=== PATIENT | female | born 1945 | race Caucasian/White ===

== ENCOUNTER → 2022-03-08 | Day surgery (SDC) | payer MEDICARE, OTHER ==
[~2022-03-08] MED LIST: Iron, Sodium Ferric Gluconate 125 MG in Sodium Chloride 0.9% 100 ML IVPB SCH; Sodium Chloride 0.9% 100 ML ONE
== END | disposition home or self-care (01) ==
LOC: NAV ER/OP 08:55
PROVIDERS: ATTEND Emergency Medicine
DX: D64.9 Anemia, unspecified (principal); E61.1 Iron deficiency; Z88.8 Allergy status to other drugs, medicaments and biological substances
CPT/HCPCS: J2916; J3490

== ENCOUNTER 2022-03-14 09:31 | Outpatient (CLI) | payer MEDICARE, OTHER ==
[2022-03-14 11:18] LABS: Follow-up Chemistry Comp? YES; Follow-up Result - Chemistry REPORT FAXED
== END 2022-03-14 09:32 | disposition home or self-care (01) ==
LOC: NAV LABSP 09:31
PROVIDERS: ATTEND Family Medicine
DX: E61.1 Iron deficiency (principal)
CPT/HCPCS: 83540

== ENCOUNTER → 2022-03-15 | Day surgery (SDC) | payer MEDICARE, OTHER ==
[~2022-03-15] MED LIST changes: +ADMIXTURE FEE IVPB SCH; +IRON IVPB SCH; +SODIUM FERRIC GLUCONATE IVPB SCH
== END | disposition home or self-care (01) ==
LOC: NAV ER/OP 08:54
PROVIDERS: ATTEND Emergency Medicine
DX: D64.9 Anemia, unspecified (principal); E61.1 Iron deficiency; Z88.8 Allergy status to other drugs, medicaments and biological substances
CPT/HCPCS: J2916; J3490

== ENCOUNTER 2022-03-22 09:13 | Emergency (ER) | payer MEDICARE, OTHER ==
[2022-03-22] MEDS ORDERED: Sulfameth/Trimethoprim DS 800-160mg TAB ONE (10:43)
== END 2022-03-22 10:35 | disposition home or self-care (01) ==
LOC: NAV ERS 09:13
DX: L03.115 Cellulitis of right lower limb (principal); E03.9 Hypothyroidism, unspecified; E78.5 Hyperlipidemia, unspecified; I10 Essential (primary) hypertension; E11.9 Type 2 diabetes mellitus without complications

== ENCOUNTER → 2022-03-22 | Day surgery (SDC) | payer MEDICARE, OTHER ==
[~2022-03-22] MED LIST changes: -ADMIXTURE FEE IVPB SCH; -IRON IVPB SCH; -SODIUM FERRIC GLUCONATE IVPB SCH
== END | disposition home or self-care (01) ==
LOC: NAV ER/OP 08:41
PROVIDERS: ATTEND Family Medicine
DX: D64.9 Anemia, unspecified (principal); E61.1 Iron deficiency; Z88.8 Allergy status to other drugs, medicaments and biological substances
CPT/HCPCS: 96365; 99283; J2916; J3490

== ENCOUNTER 2022-05-02 10:48 | Outpatient (CLI) | payer MEDICARE, OTHER ==
[2022-05-02 11:22] LABS: ALT (SGPT) 21 U/L (8-55); AST (SGOT) 19 U/L (5-34); Albumin 3.2 g/dL (3.4-4.8); Alkaline Phosphatase 107 U/L (40-110); Anion Gap 24 mmol/L (10-20); BUN (Urea Nitrogen) 28 mg/dL (9.8-20.1); Bilirubin, Total 0.9 mg/dL (0.2-1.2); Calc. Creatinine Clearance 0 mL/min (70-130); Calcium 8.7 mg/dL (7.8-10.44); Carbon Dioxide 23 mmol/L (23-31); Chloride 97 mmol/L (98-107); Estimated GFR 43; Globulin 3.2 g/dL (2.4-3.5); Potassium 4.7 mmol/L (3.5-5.1); Protein, Total 6.4 g/dL (5.8-8.1); Sodium 139 mmol/L (136-145)
[2022-05-02 11:27] LABS: Hemoglobin 7.6 g/dL (12.0-16.0); Manual Diff?? NO; Mean Corpuscular HGB CONC 28.7 g/dL (32.0-36.0); Mean Corpuscular Volume 83.8 fL (78.0-98.0); Mean Platelet Volume 8.4 fL (7.4-10.4); Platelet Count 420 thou/uL (130-400); RBC Distribution Width 17.1 % (11.5-14.5); Red Blood Cell (RBC) Count 3.17 mill/uL (4.20-5.40); White Blood Cell (WBC) Count 11.2 thou/uL (4.8-10.8)
[2022-05-02 11:28] LABS: #Basophils 0.1 thou/uL (0.0-0.2); #Eosinphils 0.2 thou/uL (0.0-0.7); #Lymphocytes 1.6 thou/uL (1.20-3.40); #Monocytes 1.3 thou/uL (0.11-0.59); #Neutrophils 8.1 thou/uL (1.40-6.50); %Basophils 0.7 % (0.0-1.0); %Eosinophils 2.1 % (0.0-10.0); %Lymphocytes 14.3 % (21.0-51.0); %Monocytes 11.3 % (0.0-10.0); %Neutrophils 71.7 % (42.0-75.0)
[2022-05-02 12:42] LABS: Glucose 59 mg/dL (83-110)
[2022-05-02 12:50] LABS: Bilirubin Negative (Negative); Blood, Urine Trace (Negative); Glucose, Urine (Dipstick) Negative (Negative); Ketone, Urine Negative (Negative); Leukocyte Large (Negative); Nitrite Negative (Negative); Protein, Urine (Dipstick) 30 mg/dL (Neg-Trace)
[2022-05-02 12:51] LABS: Bacteria/HPF 4+ HPF (None Seen); Clarity Cloudy (Clear); RBC/HPF 0-3 HPF (0-3); Squamous Epithelial 0-3 HPF (0-3); Transitional Epithelial 0-3 HPF (None Seen); WBC/HPF Greater Than 50 HPF (0-3)
[2022-05-02 17:22] LABS: Iron 23 ug/dL (50-170); Iron Binding Capacity, Total 214 mcg/dL (265-497); Transferrin, Serum 171 mg/dL (173-360); Triglycerides 73 mg/dL (Less than 150)
== END 2022-05-02 10:49 | disposition home or self-care (01) ==
LOC: NAV LABSP 10:48
PROVIDERS: ATTEND Family Medicine
DX: I82.413 Acute embolism and thrombosis of femoral vein, bilateral (principal); N17.9 Acute kidney failure, unspecified; D64.9 Anemia, unspecified; R74.01 Elevation of levels of liver transaminase levels
CPT/HCPCS: 80053; 81003; 81015; 82728; 83540; 83550; 84466; 84478; 85025

== ENCOUNTER 2022-06-07 15:33 | Inpatient (IN) | payer MEDICARE, OTHER ==
[2022-06-07] MEDS ORDERED: Ondansetron ODT 4 MG TAB PO PRN (18:54)
[2022-06-07] MEDS ORDERED: Cepastat Lozenges 1 LOZ PO PRN (18:54)
[2022-06-07] MEDS ORDERED: Artificial Tear Sol 15 ML BOT EA EYE PRN (18:54)
[2022-06-07] MEDS ORDERED: Acetaminophen 325 MG TAB PO PRN ×2 (18:54→20:19)
[2022-06-07] MEDS ORDERED: Acetaminophen 650 MG Suppository PR PRN (18:54)
[2022-06-07] MEDS ORDERED: Ondansetron PF 4 MG/2 ML Vial IVP PRN (18:54)
[2022-06-07] MEDS ORDERED: Sodium Chloride 0.65% Nasal 44 ML BOT EA NARE PRN (18:54)
[2022-06-07] MEDS ORDERED: Calcium Carbonate 500 MG ChewTAB PO PRN (18:54)
[2022-06-07] MEDS ORDERED: Dextrose 50% Abboject 50 ML SYRINGE SLOW IVP PRN (20:16)
[2022-06-07] MEDS ORDERED: HumaLOG 300 UNITS/3 ML VIAL SC PRN (20:30)
[2022-06-07] MEDS ORDERED: Dextrose 5% in Water 1,000 ML IV PRN (20:30)
[2022-06-07] MEDS: hydrALAZINE 25 MG TAB PO SCH (21:35)
[2022-06-07] MEDS: Atorvastatin Calcium 40 MG TAB PO SCH (21:35)
[2022-06-07] MEDS: Apixaban 5 MG TAB PO SCH (21:35)
[2022-06-07] MEDS: Senokot S 8.6-50 MG TAB PO SCH (21:36)
[2022-06-07] MEDS: Gabapentin 100 MG CAP PO SCH (21:36)
[2022-06-07] MEDS: Metoprolol Tartrate 25 MG TAB PO SCH (21:36)
[2022-06-07] MEDS: Famotidine 20 MG TAB PO SCH (21:38)
[2022-06-07] MEDS: BENGAY TOP SCH (21:49)
[2022-06-08] MEDS: traMADol HCl 50 MG TAB PO SCH ×4 (01:02→17:14)
[2022-06-08] MEDS: Levothyroxine 150 MCG TAB PO SCH (05:31)
[2022-06-08] MEDS: FLUoxetine HCl 20 MG CAP PO SCH (07:47)
[2022-06-08] MEDS: Famotidine 20 MG TAB PO SCH ×2 (07:55→20:33)
[2022-06-08] MEDS: Calcium Carbonate 600 MG + Vit D TAB PO SCH (07:57)
[2022-06-08] MEDS: Furosemide 40 MG TAB PO SCH (07:57)
[2022-06-08] MEDS: hydrALAZINE 25 MG TAB PO SCH ×2 (07:58→20:33)
[2022-06-08] MEDS: Polyethylene Glycol 3350 17 GM Packet PO SCH (07:58)
[2022-06-08] MEDS: Senokot S 8.6-50 MG TAB PO SCH ×2 (07:58→20:34)
[2022-06-08] MEDS: Metoprolol Tartrate 25 MG TAB PO SCH ×2 (07:58→20:33)
[2022-06-08] MEDS: Apixaban 5 MG TAB PO SCH (07:58)
[2022-06-08] MEDS: BENGAY TOP SCH ×3 (07:59→20:35)
[2022-06-08] MEDS: Gabapentin 100 MG CAP PO SCH ×3 (07:59→20:33)
[2022-06-08] MEDS: Liothyronine Sodium 5 MCG TAB PO SCH (07:59)
[2022-06-08 08:09] LABS: #Basophils 0.1 thou/uL (0.0-0.2); #Eosinphils 0.3 thou/uL (0.0-0.7); #Lymphocytes 2.1 thou/uL (1.20-3.40); #Neutrophils 6.4 thou/uL (1.40-6.50); %Basophils 0.7 % (0.0-1.0); %Eosinophils 3.5 % (0.0-10.0); %Lymphocytes 21.4 % (21.0-51.0); %Monocytes 9.8 % (0.0-10.0); %Neutrophils 64.6 % (42.0-75.0); Hemoglobin 6.8 g/dL (12.0-16.0); Mean Corpuscular HGB CONC 28.4 g/dL (32.0-36.0); Mean Corpuscular Hemoglobin 23.1 pg (27.0-31.0); Mean Corpuscular Volume 81.3 fL (78.0-98.0); Mean Platelet Volume 7.8 fL (7.4-10.4); Platelet Count 451 thou/uL (130-400); RBC Distribution Width 16.2 % (11.5-14.5); Red Blood Cell (RBC) Count 2.94 mill/uL (4.20-5.40); White Blood Cell (WBC) Count 9.8 thou/uL (4.8-10.8)
[2022-06-08 08:19] LABS: ALT (SGPT) 34 U/L (8-55); AST (SGOT) 22 U/L (5-34); Albumin 2.7 g/dL (3.4-4.8); Alkaline Phosphatase 137 U/L (40-110); Anion Gap 14 mmol/L (10-20); BUN (Urea Nitrogen) 22 mg/dL (9.8-20.1); Bilirubin, Total 0.3 mg/dL (0.2-1.2); Calc. Creatinine Clearance 96 mL/min (70-130); Carbon Dioxide 34 mmol/L (23-31); Chloride 96 mmol/L (98-107); Estimated GFR 54; Globulin 3.2 g/dL (2.4-3.5); Glucose 113 mg/dL (83-110); Potassium 4.2 mmol/L (3.5-5.1); Protein, Total 5.9 g/dL (5.8-8.1); Sodium 140 mmol/L (136-145)
[2022-06-08] MEDS: HumaLOG 300 UNITS/3 ML VIAL SC PRN ×2 (11:40→17:17)
[2022-06-08] MEDS ORDERED: Bisacodyl 5 MG TAB PO PRN (19:14)
[2022-06-08] MEDS ORDERED: Bisacodyl 10 MG SUPP PR PRN (19:14)
[2022-06-08] MEDS ORDERED: Milk Of Magnesia 30 ML UDCUP PO PRN (19:14)
[2022-06-08] MEDS: Atorvastatin Calcium 40 MG TAB PO SCH (20:33)
[2022-06-08] MEDS: Apixaban 2.5 MG TAB PO SCH (20:34)
[2022-06-09] MEDS: traMADol HCl 50 MG TAB PO SCH ×2 (00:05→05:54)
[2022-06-09] MEDS: Levothyroxine 150 MCG TAB PO SCH (05:54)
[2022-06-09] MEDS: FLUoxetine HCl 20 MG CAP PO SCH (08:07)
[2022-06-09] MEDS: Gabapentin 100 MG CAP PO SCH ×3 (08:08→20:20)
[2022-06-09] MEDS: Apixaban 2.5 MG TAB PO SCH ×2 (08:08→20:19)
[2022-06-09] MEDS: Famotidine 20 MG TAB PO SCH ×2 (08:09→20:19)
[2022-06-09] MEDS: Metoprolol Tartrate 25 MG TAB PO SCH ×2 (08:09→19:40)
[2022-06-09] MEDS: hydrALAZINE 25 MG TAB PO SCH ×2 (08:09→19:40)
[2022-06-09] MEDS: Liothyronine Sodium 5 MCG TAB PO SCH (08:09)
[2022-06-09] MEDS: Furosemide 40 MG TAB PO SCH (08:09)
[2022-06-09] MEDS: Polyethylene Glycol 3350 17 GM Packet PO SCH (08:09)
[2022-06-09] MEDS: Senokot S 8.6-50 MG TAB PO SCH ×2 (08:09→20:20)
[2022-06-09] MEDS: Calcium Carbonate 600 MG + Vit D TAB PO SCH (08:09)
[2022-06-09] MEDS: BENGAY TOP SCH ×3 (08:10→20:20)
[2022-06-09] MEDS ORDERED: EPINEPHrine 1 MG/ML AMP IVP PRN (10:32)
[2022-06-09] MEDS ORDERED: Acetaminophen 650 MG Suppository PR PRN (10:37)
[2022-06-09] MEDS: HumaLOG 300 UNITS/3 ML VIAL SC PRN (12:19)
[2022-06-09 16:15] LABS: Bilirubin Negative (Negative); Blood, Urine Negative (Negative); Clarity Clear (Clear); Glucose, Urine (Dipstick) Negative (Negative); Ketone, Urine Negative (Negative); Leukocyte Negative (Negative); Nitrite Negative (Negative); Protein, Urine (Dipstick) 30 mg/dL (Neg-Trace); Specific Gravity, Urine 1.015 (1.005-1.030); Urobilinogen 0.2 mg/dL (Less than 2); pH, Urine 5.5 (5.0-9.0)
[2022-06-09 17:44] LABS: Hemoglobin 6.9 g/dL (12.0-16.0)
[2022-06-09 17:48] LABS: Urine Culture Reflex No No
[2022-06-09 17:53] LABS: Squamous Epithelial 0-3 HPF (0-3); WBC/HPF 0-3 HPF (0-3)
[2022-06-09] MEDS: Atorvastatin Calcium 40 MG TAB PO SCH (20:19)
[2022-06-10] MEDS: Levothyroxine 150 MCG TAB PO SCH (05:36)
[2022-06-10 07:03] LABS: Hemoglobin 7.5 g/dL (12.0-16.0); MDiff Complete? YES; Mean Corpuscular HGB CONC 27.7 g/dL (32.0-36.0); Mean Corpuscular Hemoglobin 22.4 pg (27.0-31.0); Mean Corpuscular Volume 80.6 fL (78.0-98.0); Mean Platelet Volume 8.2 fL (7.4-10.4); Platelet Count 388 thou/uL (130-400); RBC Distribution Width 16.6 % (11.5-14.5); Red Blood Cell (RBC) Count 3.35 mill/uL (4.20-5.40)
[2022-06-10 07:05] LABS: Anisocytosis SLIGHT = 6-15 cells (100X) (0-5/hpf); Band 4 % (5-11); Hypochromia SLIGHT = 6-15 cells (100X) (0-5/hpf); Lymphocytes 19 % (21-51); Monocytes 1 % (0-10); Neutrophil 76 % (42-75)
[2022-06-10] MEDS: Metoprolol Tartrate 25 MG TAB PO SCH ×2 (07:59→21:20)
[2022-06-10] MEDS: Liothyronine Sodium 5 MCG TAB PO SCH (08:00)
[2022-06-10] MEDS: Senokot S 8.6-50 MG TAB PO SCH ×2 (08:00→21:20)
[2022-06-10] MEDS: Calcium Carbonate 600 MG + Vit D TAB PO SCH (08:00)
[2022-06-10] MEDS: Furosemide 40 MG TAB PO SCH (08:00)
[2022-06-10] MEDS: Apixaban 2.5 MG TAB PO SCH ×2 (08:00→21:20)
[2022-06-10] MEDS: Gabapentin 100 MG CAP PO SCH ×3 (08:02→21:18)
[2022-06-10] MEDS: FLUoxetine HCl 20 MG CAP PO SCH (08:03)
[2022-06-10] MEDS: Famotidine 20 MG TAB PO SCH (08:04)
[2022-06-10] MEDS: BENGAY TOP SCH ×3 (08:04→21:24)
[2022-06-10] MEDS: Polyethylene Glycol 3350 17 GM Packet PO SCH (08:04)
[2022-06-10] MEDS: hydrALAZINE 25 MG TAB PO SCH ×2 (08:04→21:20)
[2022-06-10] MEDS: traMADol HCl 50 MG TAB PO PRN ×2 (08:11→21:21)
[2022-06-10] MEDS ORDERED: Famotidine 20 MG TAB PO PRN (11:43)
[2022-06-10] MEDS: HumaLOG 300 UNITS/3 ML VIAL SC PRN (11:45)
[2022-06-10 16:10] LABS: #Eosinphils 0.2 thou/uL (0.0-0.7); #Lymphocytes 1.4 thou/uL (1.20-3.40); #Monocytes 1.1 thou/uL (0.11-0.59); #Neutrophils 11.2 thou/uL (1.40-6.50); %Basophils 0.2 % (0.0-1.0); %Eosinophils 1.5 % (0.0-10.0); %Lymphocytes 10.2 % (21.0-51.0); %Monocytes 7.6 % (0.0-10.0); %Neutrophils 80.5 % (42.0-75.0); Hemoglobin 8.2 g/dL (12.0-16.0); Mean Corpuscular HGB CONC 29.4 g/dL (32.0-36.0); Mean Corpuscular Volume 81.6 fL (78.0-98.0); Mean Platelet Volume 8.1 fL (7.4-10.4); Platelet Count 370 thou/uL (130-400); RBC Distribution Width 16.9 % (11.5-14.5); Red Blood Cell (RBC) Count 3.41 mill/uL (4.20-5.40); White Blood Cell (WBC) Count 13.9 thou/uL (4.8-10.8)
[2022-06-10] MEDS: Atorvastatin Calcium 40 MG TAB PO SCH (21:20)
[2022-06-11] MEDS: Levothyroxine 150 MCG TAB PO SCH (05:15)
[2022-06-11 06:09] LABS: #Basophils 0.1 thou/uL (0.0-0.2); #Eosinphils 0.3 thou/uL (0.0-0.7); #Lymphocytes 1.3 thou/uL (1.20-3.40); #Monocytes 1.1 thou/uL (0.11-0.59); %Basophils 0.4 % (0.0-1.0); %Eosinophils 2.1 % (0.0-10.0); %Lymphocytes 10.4 % (21.0-51.0); %Monocytes 8.2 % (0.0-10.0); %Neutrophils 78.9 % (42.0-75.0); Hemoglobin 8.4 g/dL (12.0-16.0); Mean Corpuscular HGB CONC 29.1 g/dL (32.0-36.0); Mean Corpuscular Hemoglobin 23.7 pg (27.0-31.0); Mean Corpuscular Volume 81.6 fL (78.0-98.0); Mean Platelet Volume 8.3 fL (7.4-10.4); Platelet Count 438 thou/uL (130-400); RBC Distribution Width 16.7 % (11.5-14.5); Red Blood Cell (RBC) Count 3.55 mill/uL (4.20-5.40); White Blood Cell (WBC) Count 12.7 thou/uL (4.8-10.8)
[2022-06-11 06:18] LABS: Anion Gap 16 mmol/L (10-20); BUN (Urea Nitrogen) 27 mg/dL (9.8-20.1); Calc. Creatinine Clearance 99 mL/min (70-130); Calcium 9.3 mg/dL (7.8-10.44); Carbon Dioxide 31 mmol/L (23-31); Chloride 93 mmol/L (98-107); Estimated GFR 56; Glucose 145 mg/dL (83-110); Potassium 4.6 mmol/L (3.5-5.1); Sodium 135 mmol/L (136-145)
[2022-06-11] MEDS: traMADol HCl 50 MG TAB PO PRN ×2 (09:20→20:40)
[2022-06-11] MEDS: BENGAY TOP SCH ×3 (09:22→20:42)
[2022-06-11] MEDS: Polyethylene Glycol 3350 17 GM Packet PO SCH (09:22)
[2022-06-11] MEDS: Calcium Carbonate 600 MG + Vit D TAB PO SCH (09:22)
[2022-06-11] MEDS: FLUoxetine HCl 20 MG CAP PO SCH (09:22)
[2022-06-11] MEDS: Senokot S 8.6-50 MG TAB PO SCH ×2 (09:23→20:41)
[2022-06-11] MEDS: Furosemide 40 MG TAB PO SCH (09:23)
[2022-06-11] MEDS: Gabapentin 100 MG CAP PO SCH ×3 (09:23→20:41)
[2022-06-11] MEDS: Metoprolol Tartrate 25 MG TAB PO SCH ×2 (09:23→20:41)
[2022-06-11] MEDS: hydrALAZINE 25 MG TAB PO SCH ×3 (09:23→20:41)
[2022-06-11] MEDS: Liothyronine Sodium 5 MCG TAB PO SCH (09:24)
[2022-06-11] MEDS: Apixaban 2.5 MG TAB PO SCH ×2 (09:24→20:41)
[2022-06-11] MEDS: HumaLOG 300 UNITS/3 ML VIAL SC PRN (11:52)
[2022-06-11] MEDS ORDERED: Lisinopril 10 MG TAB PO SCH (17:45)
[2022-06-11] MEDS: Atorvastatin Calcium 40 MG TAB PO SCH (20:41)
[2022-06-12] MEDS: Levothyroxine 150 MCG TAB PO SCH (05:59)
[2022-06-12 06:18] LABS: #Basophils 0.1 thou/uL (0.0-0.2); #Eosinphils 0.3 thou/uL (0.0-0.7); #Lymphocytes 1.7 thou/uL (1.20-3.40); #Monocytes 0.8 thou/uL (0.11-0.59); #Neutrophils 7.3 thou/uL (1.40-6.50); %Basophils 0.7 % (0.0-1.0); %Eosinophils 2.8 % (0.0-10.0); %Lymphocytes 16.5 % (21.0-51.0); Hemoglobin 8.4 g/dL (12.0-16.0); Mean Corpuscular HGB CONC 28.8 g/dL (32.0-36.0); Mean Corpuscular Hemoglobin 23.6 pg (27.0-31.0); Mean Corpuscular Volume 81.7 fL (78.0-98.0); Mean Platelet Volume 7.5 fL (7.4-10.4); Platelet Count 202 thou/uL (130-400); RBC Distribution Width 17.1 % (11.5-14.5); Red Blood Cell (RBC) Count 3.57 mill/uL (4.20-5.40); White Blood Cell (WBC) Count 10.2 thou/uL (4.8-10.8)
[2022-06-12 06:20] LABS: Anion Gap 16 mmol/L (10-20); BUN (Urea Nitrogen) 25 mg/dL (9.8-20.1); Calc. Creatinine Clearance 106 mL/min (70-130); Calcium 8.8 mg/dL (7.8-10.44); Carbon Dioxide 29 mmol/L (23-31); Chloride 97 mmol/L (98-107); Estimated GFR 60; Glucose 130 mg/dL (83-110); Potassium 4.9 mmol/L (3.5-5.1); Sodium 137 mmol/L (136-145)
[2022-06-12] MEDS: Calcium Carbonate 600 MG + Vit D TAB PO SCH (09:21)
[2022-06-12] MEDS: Gabapentin 100 MG CAP PO SCH ×3 (09:22→21:28)
[2022-06-12] MEDS: FLUoxetine HCl 20 MG CAP PO SCH (09:22)
[2022-06-12] MEDS: Metoprolol Tartrate 25 MG TAB PO SCH ×2 (09:24→21:28)
[2022-06-12] MEDS: Furosemide 40 MG TAB PO SCH (09:25)
[2022-06-12] MEDS: Liothyronine Sodium 5 MCG TAB PO SCH (09:25)
[2022-06-12] MEDS: Lisinopril 10 MG TAB PO SCH (09:25)
[2022-06-12] MEDS: Apixaban 2.5 MG TAB PO SCH ×2 (09:25→21:28)
[2022-06-12] MEDS: hydrALAZINE 25 MG TAB PO SCH ×3 (09:25→21:28)
[2022-06-12] MEDS: Polyethylene Glycol 3350 17 GM Packet PO SCH (09:26)
[2022-06-12] MEDS: Senokot S 8.6-50 MG TAB PO SCH ×2 (09:27→21:28)
[2022-06-12] MEDS: BENGAY TOP SCH ×3 (09:29→21:33)
[2022-06-12] MEDS: traMADol HCl 50 MG TAB PO PRN ×2 (12:29→21:29)
[2022-06-12] MEDS: HumaLOG 300 UNITS/3 ML VIAL SC PRN (16:51)
[2022-06-12] MEDS: Atorvastatin Calcium 40 MG TAB PO SCH (21:29)
[2022-06-13] MEDS: Levothyroxine 150 MCG TAB PO SCH (05:52)
[2022-06-13 06:08] LABS: #Basophils 0.1 thou/uL (0.0-0.2); #Eosinphils 0.3 thou/uL (0.0-0.7); #Lymphocytes 1.7 thou/uL (1.20-3.40); #Monocytes 1.2 thou/uL (0.11-0.59); %Basophils 0.6 % (0.0-1.0); %Lymphocytes 16.5 % (21.0-51.0); %Monocytes 11.4 % (0.0-10.0); %Neutrophils 68.5 % (42.0-75.0); Hemoglobin 7.8 g/dL (12.0-16.0); Mean Corpuscular HGB CONC 30.3 g/dL (32.0-36.0); Mean Corpuscular Hemoglobin 24.4 pg (27.0-31.0); Mean Corpuscular Volume 80.4 fL (78.0-98.0); Mean Platelet Volume 7.9 fL (7.4-10.4); Platelet Count 365 thou/uL (130-400); RBC Distribution Width 16.9 % (11.5-14.5); Red Blood Cell (RBC) Count 3.19 mill/uL (4.20-5.40); White Blood Cell (WBC) Count 10.2 thou/uL (4.8-10.8)
[2022-06-13 06:09] LABS: Anion Gap 13 mmol/L (10-20); BUN (Urea Nitrogen) 24 mg/dL (9.8-20.1); Calc. Creatinine Clearance 111 mL/min (70-130); Calcium 8.8 mg/dL (7.8-10.44); Carbon Dioxide 33 mmol/L (23-31); Chloride 94 mmol/L (98-107); Estimated GFR 63; Glucose 135 mg/dL (83-110); Potassium 4.5 mmol/L (3.5-5.1); Sodium 135 mmol/L (136-145)
[2022-06-13] MEDS: Polyethylene Glycol 3350 17 GM Packet PO SCH (07:53)
[2022-06-13] MEDS: Furosemide 40 MG TAB PO SCH (07:54)
[2022-06-13] MEDS: BENGAY TOP SCH ×3 (07:54→21:09)
[2022-06-13] MEDS: Calcium Carbonate 600 MG + Vit D TAB PO SCH (07:54)
[2022-06-13] MEDS: Lisinopril 10 MG TAB PO SCH (07:54)
[2022-06-13] MEDS: Senokot S 8.6-50 MG TAB PO SCH ×2 (07:54→21:07)
[2022-06-13] MEDS: Liothyronine Sodium 5 MCG TAB PO SCH (07:54)
[2022-06-13] MEDS: Apixaban 2.5 MG TAB PO SCH ×2 (07:54→21:07)
[2022-06-13] MEDS: FLUoxetine HCl 20 MG CAP PO SCH (07:55)
[2022-06-13] MEDS: Metoprolol Tartrate 25 MG TAB PO SCH ×2 (07:55→21:07)
[2022-06-13] MEDS: Gabapentin 100 MG CAP PO SCH ×3 (07:55→21:05)
[2022-06-13] MEDS: hydrALAZINE 25 MG TAB PO SCH ×3 (07:55→21:07)
[2022-06-13] MEDS: traMADol HCl 50 MG TAB PO PRN ×2 (11:08→22:52)
[2022-06-13] MEDS: HumaLOG 300 UNITS/3 ML VIAL SC PRN (11:47)
[2022-06-13] MEDS: Acetaminophen 325 MG TAB PO PRN (15:44)
[2022-06-13] MEDS: Atorvastatin Calcium 40 MG TAB PO SCH (21:07)
[2022-06-14] MEDS: Levothyroxine 150 MCG TAB PO SCH (05:40)
[2022-06-14] MEDS: BENGAY TOP SCH ×3 (07:56→20:48)
[2022-06-14] MEDS: Calcium Carbonate 600 MG + Vit D TAB PO SCH (07:56)
[2022-06-14] MEDS: FLUoxetine HCl 20 MG CAP PO SCH (07:58)
[2022-06-14] MEDS: Liothyronine Sodium 5 MCG TAB PO SCH (07:59)
[2022-06-14] MEDS: Lisinopril 10 MG TAB PO SCH (07:59)
[2022-06-14] MEDS: Senokot S 8.6-50 MG TAB PO SCH ×2 (07:59→20:47)
[2022-06-14] MEDS: hydrALAZINE 25 MG TAB PO SCH ×3 (07:59→20:47)
[2022-06-14] MEDS: Metoprolol Tartrate 25 MG TAB PO SCH ×2 (07:59→20:47)
[2022-06-14] MEDS: Furosemide 40 MG TAB PO SCH (07:59)
[2022-06-14] MEDS: Gabapentin 100 MG CAP PO SCH ×3 (07:59→20:47)
[2022-06-14] MEDS: Apixaban 2.5 MG TAB PO SCH ×2 (07:59→20:47)
[2022-06-14] MEDS: Polyethylene Glycol 3350 17 GM Packet PO SCH (08:00)
[2022-06-14] MEDS: HumaLOG 300 UNITS/3 ML VIAL SC PRN (12:09)
[2022-06-14] MEDS: Atorvastatin Calcium 40 MG TAB PO SCH (20:47)
[2022-06-15] MEDS: Levothyroxine 150 MCG TAB PO SCH (06:14)
[2022-06-15] MEDS: BENGAY TOP SCH ×3 (07:52→20:52)
[2022-06-15] MEDS: Calcium Carbonate 600 MG + Vit D TAB PO SCH (07:53)
[2022-06-15] MEDS: traMADol HCl 50 MG TAB PO PRN ×2 (07:54→15:17)
[2022-06-15] MEDS: Senokot S 8.6-50 MG TAB PO SCH ×2 (07:56→20:51)
[2022-06-15] MEDS: hydrALAZINE 25 MG TAB PO SCH ×3 (07:56→20:51)
[2022-06-15] MEDS: Liothyronine Sodium 5 MCG TAB PO SCH (07:56)
[2022-06-15] MEDS: Metoprolol Tartrate 25 MG TAB PO SCH ×2 (07:56→20:52)
[2022-06-15] MEDS: FLUoxetine HCl 20 MG CAP PO SCH (07:56)
[2022-06-15] MEDS: Gabapentin 100 MG CAP PO SCH ×3 (07:56→20:51)
[2022-06-15] MEDS: Polyethylene Glycol 3350 17 GM Packet PO SCH (07:57)
[2022-06-15] MEDS: Furosemide 40 MG TAB PO SCH (07:57)
[2022-06-15] MEDS: Apixaban 2.5 MG TAB PO SCH ×2 (07:57→20:52)
[2022-06-15] MEDS: Lisinopril 10 MG TAB PO SCH (07:57)
[2022-06-15] MEDS: Cyclobenzaprine 10 MG TAB PO PRN ×2 (09:35→20:54)
[2022-06-15] MEDS: Acetaminophen 325 MG TAB PO PRN ×2 (11:59→20:54)
[2022-06-15] MEDS: HumaLOG 300 UNITS/3 ML VIAL SC PRN ×2 (12:00→17:16)
[2022-06-15] MEDS: Atorvastatin Calcium 40 MG TAB PO SCH (20:51)
[2022-06-16] MEDS: Levothyroxine 150 MCG TAB PO SCH (05:24)
[2022-06-16] MEDS: Metoprolol Tartrate 25 MG TAB PO SCH ×2 (08:53→20:56)
[2022-06-16] MEDS: Furosemide 40 MG TAB PO SCH (08:54)
[2022-06-16] MEDS: Gabapentin 100 MG CAP PO SCH ×3 (08:54→20:56)
[2022-06-16] MEDS: Lisinopril 10 MG TAB PO SCH (08:54)
[2022-06-16] MEDS: Calcium Carbonate 600 MG + Vit D TAB PO SCH (08:54)
[2022-06-16] MEDS: hydrALAZINE 25 MG TAB PO SCH ×3 (08:54→20:56)
[2022-06-16] MEDS: FLUoxetine HCl 20 MG CAP PO SCH (08:54)
[2022-06-16] MEDS: Apixaban 2.5 MG TAB PO SCH ×2 (08:55→20:56)
[2022-06-16] MEDS: Liothyronine Sodium 5 MCG TAB PO SCH (08:55)
[2022-06-16] MEDS: Senokot S 8.6-50 MG TAB PO SCH ×2 (08:56→20:37)
[2022-06-16] MEDS: BENGAY TOP SCH ×3 (08:56→20:37)
[2022-06-16] MEDS: Polyethylene Glycol 3350 17 GM Packet PO SCH (08:56)
[2022-06-16] MEDS: Cyclobenzaprine 10 MG TAB PO PRN (09:51)
[2022-06-16] MEDS: traMADol HCl 50 MG TAB PO PRN (09:51)
[2022-06-16] MEDS: HumaLOG 300 UNITS/3 ML VIAL SC PRN ×2 (12:28→17:33)
[2022-06-16] MEDS: Atorvastatin Calcium 40 MG TAB PO SCH (20:56)
[2022-06-17] MEDS: Levothyroxine 150 MCG TAB PO SCH (05:50)
[2022-06-17] MEDS: Gabapentin 100 MG CAP PO SCH ×3 (08:01→21:39)
[2022-06-17] MEDS: hydrALAZINE 25 MG TAB PO SCH ×3 (08:02→21:39)
[2022-06-17] MEDS: Liothyronine Sodium 5 MCG TAB PO SCH (08:02)
[2022-06-17] MEDS: Calcium Carbonate 600 MG + Vit D TAB PO SCH (08:02)
[2022-06-17] MEDS: Furosemide 40 MG TAB PO SCH (08:02)
[2022-06-17] MEDS: Lisinopril 10 MG TAB PO SCH (08:03)
[2022-06-17] MEDS: Apixaban 2.5 MG TAB PO SCH ×2 (08:03→21:39)
[2022-06-17] MEDS: traMADol HCl 50 MG TAB PO PRN (08:03)
[2022-06-17] MEDS: Metoprolol Tartrate 25 MG TAB PO SCH ×2 (08:03→21:39)
[2022-06-17] MEDS: Cyclobenzaprine 10 MG TAB PO PRN (08:03)
[2022-06-17] MEDS: Polyethylene Glycol 3350 17 GM Packet PO SCH (08:05)
[2022-06-17] MEDS: Senokot S 8.6-50 MG TAB PO SCH ×2 (08:05→21:39)
[2022-06-17] MEDS: BENGAY TOP SCH ×3 (08:05→21:40)
[2022-06-17] MEDS: FLUoxetine HCl 20 MG CAP PO SCH (08:06)
[2022-06-17] MEDS: HumaLOG 300 UNITS/3 ML VIAL SC PRN (11:54)
[2022-06-17 17:27] LABS: Bilirubin Negative (Negative); Blood, Urine Negative (Negative); Clarity Slightly Cloudy (Clear); Glucose, Urine (Dipstick) Negative (Negative); Ketone, Urine Negative (Negative); Leukocyte Negative (Negative); Nitrite Negative (Negative); Protein, Urine (Dipstick) Negative (Neg-Trace); pH, Urine 6.5 (5.0-9.0)
[2022-06-17 17:30] LABS: Urine Culture Reflex No No
[2022-06-17 17:36] LABS: Bacteria/HPF 3+ HPF (None Seen); RBC/HPF 0-3 HPF (0-3); WBC/HPF 0-3 HPF (0-3); Yeast-Budding 1+ HPF (None Seen)
[2022-06-17] MEDS: Atorvastatin Calcium 40 MG TAB PO SCH (21:39)
[2022-06-18] MEDS: Levothyroxine 150 MCG TAB PO SCH (05:36)
[2022-06-18] MEDS: Metoprolol Tartrate 25 MG TAB PO SCH ×2 (08:06→20:18)
[2022-06-18] MEDS: Liothyronine Sodium 5 MCG TAB PO SCH (08:06)
[2022-06-18] MEDS: Apixaban 2.5 MG TAB PO SCH ×2 (08:06→20:18)
[2022-06-18] MEDS: FLUoxetine HCl 20 MG CAP PO SCH (08:06)
[2022-06-18] MEDS: Gabapentin 100 MG CAP PO SCH ×3 (08:07→20:18)
[2022-06-18] MEDS: Lisinopril 10 MG TAB PO SCH (08:07)
[2022-06-18] MEDS: Senokot S 8.6-50 MG TAB PO SCH ×2 (08:08→20:18)
[2022-06-18] MEDS: Furosemide 40 MG TAB PO SCH (08:08)
[2022-06-18] MEDS: hydrALAZINE 25 MG TAB PO SCH ×3 (08:08→20:18)
[2022-06-18] MEDS: Calcium Carbonate 600 MG + Vit D TAB PO SCH (08:08)
[2022-06-18] MEDS: BENGAY TOP SCH ×3 (08:08→20:18)
[2022-06-18] MEDS: Polyethylene Glycol 3350 17 GM Packet PO SCH (08:09)
[2022-06-18 09:24] LABS: #Basophils 0.1 thou/uL (0.0-0.2); #Eosinphils 0.3 thou/uL (0.0-0.7); #Monocytes 1.1 thou/uL (0.11-0.59); #Neutrophils 8.6 thou/uL (1.40-6.50); %Basophils 0.8 % (0.0-1.0); %Eosinophils 2.3 % (0.0-10.0); %Neutrophils 77.9 % (42.0-75.0); Hemoglobin 7.8 g/dL (12.0-16.0); Mean Corpuscular HGB CONC 29.9 g/dL (32.0-36.0); Mean Corpuscular Hemoglobin 23.9 pg (27.0-31.0); Mean Corpuscular Volume 80.2 fL (78.0-98.0); Mean Platelet Volume 8.1 fL (7.4-10.4); Platelet Count 397 thou/uL (130-400); RBC Distribution Width 16.8 % (11.5-14.5); Red Blood Cell (RBC) Count 3.27 mill/uL (4.20-5.40)
[2022-06-18] MEDS ORDERED: Fluconazole 100 MG TAB PO SCH (09:30)
[2022-06-18 09:31] LABS: Anion Gap 17 mmol/L (10-20); BUN (Urea Nitrogen) 22 mg/dL (9.8-20.1); Calc. Creatinine Clearance 104 mL/min (70-130); Calcium 8.9 mg/dL (7.8-10.44); Carbon Dioxide 30 mmol/L (23-31); Chloride 94 mmol/L (98-107); Estimated GFR 59; Glucose 152 mg/dL (83-110); Potassium 4.6 mmol/L (3.5-5.1); Sodium 136 mmol/L (136-145)
[2022-06-18] MEDS: traMADol HCl 50 MG TAB PO PRN (09:55)
[2022-06-18] MEDS: Cyclobenzaprine 10 MG TAB PO PRN (09:55)
[2022-06-18 10:36] LABS: MDiff Complete? YES
[2022-06-18] MEDS: HumaLOG 300 UNITS/3 ML VIAL SC PRN ×2 (11:53→17:42)
[2022-06-18] MEDS: Atorvastatin Calcium 40 MG TAB PO SCH (20:18)
[2022-06-19 05:31] LABS: #Basophils 0.1 thou/uL (0.0-0.2); #Eosinphils 0.2 thou/uL (0.0-0.7); #Lymphocytes 1.2 thou/uL (1.20-3.40); #Monocytes 1.1 thou/uL (0.11-0.59); %Basophils 0.6 % (0.0-1.0); %Lymphocytes 12.8 % (21.0-51.0); %Monocytes 11.5 % (0.0-10.0); %Neutrophils 73.1 % (42.0-75.0); Hemoglobin 8.2 g/dL (12.0-16.0); Mean Corpuscular HGB CONC 29.6 g/dL (32.0-36.0); Mean Corpuscular Hemoglobin 24.2 pg (27.0-31.0); Mean Corpuscular Volume 81.7 fL (78.0-98.0); Platelet Count 385 thou/uL (130-400); Red Blood Cell (RBC) Count 3.38 mill/uL (4.20-5.40); White Blood Cell (WBC) Count 9.6 thou/uL (4.8-10.8)
[2022-06-19 05:44] LABS: ALT (SGPT) 26 U/L (8-55); AST (SGOT) 23 U/L (5-34); Albumin 2.7 g/dL (3.4-4.8); Alkaline Phosphatase 124 U/L (40-110); Anion Gap 17 mmol/L (10-20); BUN (Urea Nitrogen) 23 mg/dL (9.8-20.1); Bilirubin, Total 0.8 mg/dL (0.2-1.2); Calc. Creatinine Clearance 100 mL/min (70-130); Calcium 8.8 mg/dL (7.8-10.44); Carbon Dioxide 29 mmol/L (23-31); Chloride 94 mmol/L (98-107); Estimated GFR 56; Globulin 3.6 g/dL (2.4-3.5); Glucose 142 mg/dL (83-110); Potassium 4.5 mmol/L (3.5-5.1); Protein, Total 6.3 g/dL (5.8-8.1); Sodium 135 mmol/L (136-145)
[2022-06-19] MEDS: HumaLOG 300 UNITS/3 ML VIAL SC PRN ×2 (05:57→12:01)
[2022-06-19] MEDS: Levothyroxine 150 MCG TAB PO SCH (05:57)
[2022-06-19] MEDS: Metoprolol Tartrate 25 MG TAB PO SCH ×2 (08:17→21:44)
[2022-06-19] MEDS: FLUoxetine HCl 20 MG CAP PO SCH (08:17)
[2022-06-19] MEDS: hydrALAZINE 25 MG TAB PO SCH ×3 (08:17→19:49)
[2022-06-19] MEDS: Fluconazole 100 MG TAB PO SCH (08:17)
[2022-06-19] MEDS: Furosemide 40 MG TAB PO SCH (08:18)
[2022-06-19] MEDS: Lisinopril 10 MG TAB PO SCH (08:18)
[2022-06-19] MEDS: Apixaban 2.5 MG TAB PO SCH ×2 (08:18→21:45)
[2022-06-19] MEDS: Calcium Carbonate 600 MG + Vit D TAB PO SCH (08:18)
[2022-06-19] MEDS: Gabapentin 100 MG CAP PO SCH (08:19)
[2022-06-19] MEDS: Liothyronine Sodium 5 MCG TAB PO SCH (08:19)
[2022-06-19] MEDS: traMADol HCl 50 MG TAB PO PRN (08:20)
[2022-06-19] MEDS: Cyclobenzaprine 10 MG TAB PO PRN (08:20)
[2022-06-19] MEDS: BENGAY TOP SCH ×3 (08:22→21:50)
[2022-06-19] MEDS: Polyethylene Glycol 3350 17 GM Packet PO SCH (08:22)
[2022-06-19] MEDS: Senokot S 8.6-50 MG TAB PO SCH ×2 (08:23→21:43)
[2022-06-19] MEDS ORDERED: Cefepime 1 GM in Sodium Chloride 0.9% 100 ML IVPB SCH (15:00)
[2022-06-19] MEDS: Albuterol 200 PUFF (6.7GM INHALER) INH PRN (20:02)
[2022-06-19] MEDS: Acetaminophen 325 MG TAB PO PRN (21:27)
[2022-06-19] MEDS: Lactated Ringer's 500 ML IV SCH (21:35)
[2022-06-19] MEDS: Atorvastatin Calcium 40 MG TAB PO SCH (21:49)
[2022-06-19] MEDS ORDERED: Azithromycin 250 MG TAB PO SCH (22:00)
[2022-06-19] MEDS ORDERED: Lactated Ringer's 1,000 ML IV SCH (22:00)
[2022-06-19 22:13] LABS: Lactic Acid 0.6 mmol/L (0.5-2.2)
[2022-06-19 22:17] LABS: ALT (SGPT) 29 U/L (8-55); AST (SGOT) 32 U/L (5-34); Albumin 2.7 g/dL (3.4-4.8); Alkaline Phosphatase 126 U/L (40-110); Anion Gap 15 mmol/L (10-20); BUN (Urea Nitrogen) 23 mg/dL (9.8-20.1); Bilirubin, Total 0.6 mg/dL (0.2-1.2); Calc. Creatinine Clearance 97 mL/min (70-130); Calcium 8.9 mg/dL (7.8-10.44); Carbon Dioxide 31 mmol/L (23-31); Chloride 95 mmol/L (98-107); Estimated GFR 54; Globulin 3.6 g/dL (2.4-3.5); Glucose 126 mg/dL (83-110); Potassium 4.3 mmol/L (3.5-5.1); Protein, Total 6.3 g/dL (5.8-8.1); Sodium 137 mmol/L (136-145)
[2022-06-19 22:22] LABS: #Basophils 0.1 thou/uL (0.0-0.2); #Eosinphils 0.1 thou/uL (0.0-0.7); #Lymphocytes 1.4 thou/uL (1.20-3.40); #Monocytes 1.1 thou/uL (0.11-0.59); #Neutrophils 7.1 thou/uL (1.40-6.50); %Basophils 0.5 % (0.0-1.0); %Eosinophils 1.4 % (0.0-10.0); %Lymphocytes 14.5 % (21.0-51.0); %Neutrophils 72.5 % (42.0-75.0); Hemoglobin 7.9 g/dL (12.0-16.0); Mean Corpuscular HGB CONC 30.9 g/dL (32.0-36.0); Mean Corpuscular Hemoglobin 24.7 pg (27.0-31.0); Mean Platelet Volume 8.1 fL (7.4-10.4); Platelet Count 375 thou/uL (130-400); RBC Distribution Width 16.8 % (11.5-14.5); Red Blood Cell (RBC) Count 3.18 mill/uL (4.20-5.40); White Blood Cell (WBC) Count 9.9 thou/uL (4.8-10.8)
[2022-06-20] MEDS: Levothyroxine 150 MCG TAB PO SCH (05:29)
[2022-06-20 05:57] LABS: Anion Gap 15 mmol/L (10-20); BUN (Urea Nitrogen) 24 mg/dL (9.8-20.1); Calc. Creatinine Clearance 99 mL/min (70-130); Calcium 8.8 mg/dL (7.8-10.44); Carbon Dioxide 32 mmol/L (23-31); Chloride 96 mmol/L (98-107); Estimated GFR 55; Glucose 139 mg/dL (83-110); Potassium 4.5 mmol/L (3.5-5.1); Sodium 138 mmol/L (136-145)
[2022-06-20 06:02] LABS: Hemoglobin 7.6 g/dL (12.0-16.0); Mean Corpuscular Hemoglobin 24.7 pg (27.0-31.0); Mean Corpuscular Volume 79.8 fL (78.0-98.0); Mean Platelet Volume 8.1 fL (7.4-10.4); Platelet Count 353 thou/uL (130-400); RBC Distribution Width 16.5 % (11.5-14.5); Red Blood Cell (RBC) Count 3.06 mill/uL (4.20-5.40); White Blood Cell (WBC) Count 8.8 thou/uL (4.8-10.8)
[2022-06-20 06:06] LABS: %Neutrophils 70.1 % (42.0-75.0)
[2022-06-20 06:07] LABS: #Lymphocytes 1.2 thou/uL (1.20-3.40); #Monocytes 1.2 thou/uL (0.11-0.59); #Neutrophils 6.2 thou/uL (1.40-6.50); %Basophils 0.4 % (0.0-1.0); %Lymphocytes 13.9 % (21.0-51.0); %Monocytes 13.6 % (0.0-10.0)
[2022-06-20 06:08] LABS: #Eosinphils 0.2 thou/uL (0.0-0.7)
[2022-06-20] MEDS: traMADol HCl 50 MG TAB PO PRN ×2 (06:08→12:58)
[2022-06-20] MEDS: FLUoxetine HCl 20 MG CAP PO SCH (08:00)
[2022-06-20] MEDS: Calcium Carbonate 600 MG + Vit D TAB PO SCH (08:31)
[2022-06-20] MEDS: Liothyronine Sodium 5 MCG TAB PO SCH (08:31)
[2022-06-20] MEDS: Apixaban 2.5 MG TAB PO SCH ×2 (08:32→20:08)
[2022-06-20] MEDS: Furosemide 40 MG TAB PO SCH (08:32)
[2022-06-20] MEDS: Lisinopril 10 MG TAB PO SCH (08:32)
[2022-06-20] MEDS: Fluconazole 100 MG TAB PO SCH (08:32)
[2022-06-20] MEDS: hydrALAZINE 25 MG TAB PO SCH ×3 (08:33→20:08)
[2022-06-20] MEDS: Metoprolol Tartrate 25 MG TAB PO SCH ×2 (08:33→20:08)
[2022-06-20] MEDS: BENGAY TOP SCH ×3 (08:34→20:09)
[2022-06-20] MEDS: Albuterol 200 PUFF (6.7GM INHALER) INH PRN ×2 (08:35→15:35)
[2022-06-20] MEDS: Polyethylene Glycol 3350 17 GM Packet PO SCH (09:19)
[2022-06-20] MEDS: Senokot S 8.6-50 MG TAB PO SCH ×2 (09:19→20:08)
[2022-06-20] MEDS: Benzonatate 100 MG CAP PO PRN (09:52)
[2022-06-20] MEDS: Cyclobenzaprine 10 MG TAB PO PRN (09:52)
[2022-06-20] MEDS: HumaLOG 300 UNITS/3 ML VIAL SC PRN (12:01)
[2022-06-20] MEDS ORDERED: Lactated Ringer's 1,000 ML IV SCH (15:15)
[2022-06-20] MEDS: Cefepime 1 GM in Sodium Chloride 0.9% 100 ML IVPB SCH (15:23)
[2022-06-20] MEDS: Guaifenesin DM 100-10/5 ML UDCUP PO PRN (16:17)
[2022-06-20] MEDS: Lactated Ringer's 500 ML IV SCH ×4 (19:35→22:21)
[2022-06-20] MEDS: Atorvastatin Calcium 40 MG TAB PO SCH (20:08)
[2022-06-20] MEDS: Azithromycin 250 MG TAB PO SCH (21:10)
[2022-06-21] MEDS: Cefepime 1 GM in Sodium Chloride 0.9% 100 ML IVPB SCH ×2 (02:26→15:39)
[2022-06-21] MEDS: Levothyroxine 150 MCG TAB PO SCH (05:53)
[2022-06-21 06:12] LABS: SARS-CoV-2 NAA Rapid Test DETECTED (NotDetected)
[2022-06-21] MEDS: traMADol HCl 50 MG TAB PO PRN (08:21)
[2022-06-21] MEDS: Acetaminophen 325 MG TAB PO PRN (08:22)
[2022-06-21] MEDS: Polyethylene Glycol 3350 17 GM Packet PO SCH (08:23)
[2022-06-21] MEDS: Calcium Carbonate 600 MG + Vit D TAB PO SCH (08:24)
[2022-06-21] MEDS: Liothyronine Sodium 5 MCG TAB PO SCH (08:24)
[2022-06-21] MEDS: Senokot S 8.6-50 MG TAB PO SCH ×2 (08:24→21:16)
[2022-06-21] MEDS: FLUoxetine HCl 20 MG CAP PO SCH (08:25)
[2022-06-21] MEDS: Fluconazole 100 MG TAB PO SCH (08:25)
[2022-06-21] MEDS: Lisinopril 10 MG TAB PO SCH (08:26)
[2022-06-21] MEDS: hydrALAZINE 25 MG TAB PO SCH ×3 (08:26→21:16)
[2022-06-21] MEDS: Metoprolol Tartrate 25 MG TAB PO SCH ×2 (08:26→21:16)
[2022-06-21] MEDS: Apixaban 2.5 MG TAB PO SCH ×2 (08:26→21:16)
[2022-06-21] MEDS: Furosemide 40 MG TAB PO SCH (08:26)
[2022-06-21] MEDS: BENGAY TOP SCH ×3 (08:31→21:58)
[2022-06-21] MEDS ORDERED: Iopamidol 370 76% 100 ML VIAL ONE (09:00)
[2022-06-21] MEDS ORDERED: NIRMATRELVIR 150 MG/RITONAVIR 100 MG PO SCH (13:45)
[2022-06-21] MEDS: HumaLOG 300 UNITS/3 ML VIAL SC PRN (17:22)
[2022-06-21] MEDS: Albuterol 200 PUFF (6.7GM INHALER) INH PRN (17:55)
[2022-06-21] MEDS: Guaifenesin DM 100-10/5 ML UDCUP PO PRN (21:16)
[2022-06-21] MEDS: NIRMATRELVIR 150 MG/RITONAVIR 100 MG PO SCH (21:17)
[2022-06-21] MEDS: Azithromycin 250 MG TAB PO SCH (21:58)
[2022-06-22] MEDS: Cefepime 1 GM in Sodium Chloride 0.9% 100 ML IVPB SCH (03:05)
[2022-06-22] MEDS: Cyclobenzaprine 10 MG TAB PO PRN ×3 (03:17→20:21)
[2022-06-22] MEDS: Levothyroxine 150 MCG TAB PO SCH (05:58)
[2022-06-22 06:21] LABS: Anion Gap 17 mmol/L (10-20); BUN (Urea Nitrogen) 18 mg/dL (9.8-20.1); Calc. Creatinine Clearance 117 mL/min (70-130); Calcium 8.5 mg/dL (7.8-10.44); Carbon Dioxide 27 mmol/L (23-31); Chloride 96 mmol/L (98-107); Estimated GFR 68; Glucose 133 mg/dL (83-110); Potassium 4.6 mmol/L (3.5-5.1); Sodium 135 mmol/L (136-145)
[2022-06-22 06:47] LABS: #Basophils 0.1 thou/uL (0.0-0.2); #Eosinphils 0.3 thou/uL (0.0-0.7); #Lymphocytes 1.1 thou/uL (1.20-3.40); #Neutrophils 5.8 thou/uL (1.40-6.50); %Basophils 0.8 % (0.0-1.0); %Eosinophils 3.1 % (0.0-10.0); %Lymphocytes 13.6 % (21.0-51.0); %Monocytes 11.7 % (0.0-10.0); %Neutrophils 70.8 % (42.0-75.0); Hemoglobin 7.9 g/dL (12.0-16.0); Mean Corpuscular HGB CONC 30.2 g/dL (32.0-36.0); Mean Corpuscular Hemoglobin 24.3 pg (27.0-31.0); Mean Corpuscular Volume 80.7 fL (78.0-98.0); Mean Platelet Volume 8.4 fL (7.4-10.4); Platelet Count 343 thou/uL (130-400); RBC Distribution Width 16.4 % (11.5-14.5); Red Blood Cell (RBC) Count 3.26 mill/uL (4.20-5.40); White Blood Cell (WBC) Count 8.2 thou/uL (4.8-10.8)
[2022-06-22] MEDS: hydrALAZINE 25 MG TAB PO SCH ×3 (09:05→20:19)
[2022-06-22] MEDS: Lisinopril 10 MG TAB PO SCH (09:06)
[2022-06-22] MEDS: Fluconazole 100 MG TAB PO SCH (09:06)
[2022-06-22] MEDS: Metoprolol Tartrate 25 MG TAB PO SCH ×2 (09:06→20:19)
[2022-06-22] MEDS: FLUoxetine HCl 20 MG CAP PO SCH (09:06)
[2022-06-22] MEDS: NIRMATRELVIR 150 MG/RITONAVIR 100 MG PO SCH ×2 (09:07→20:22)
[2022-06-22] MEDS: Calcium Carbonate 600 MG + Vit D TAB PO SCH (09:07)
[2022-06-22] MEDS: Apixaban 2.5 MG TAB PO SCH ×2 (09:07→20:20)
[2022-06-22] MEDS: Liothyronine Sodium 5 MCG TAB PO SCH (09:07)
[2022-06-22] MEDS: Furosemide 40 MG TAB PO SCH (09:07)
[2022-06-22] MEDS: BENGAY TOP SCH ×3 (09:08→20:31)
[2022-06-22] MEDS: Senokot S 8.6-50 MG TAB PO SCH ×2 (09:09→20:19)
[2022-06-22] MEDS: Polyethylene Glycol 3350 17 GM Packet PO SCH (09:09)
[2022-06-22] MEDS: Benzonatate 100 MG CAP PO PRN (09:10)
[2022-06-22] MEDS: Albuterol 200 PUFF (6.7GM INHALER) INH PRN (09:10)
[2022-06-22] MEDS: HumaLOG 300 UNITS/3 ML VIAL SC PRN (12:49)
[2022-06-22] MEDS: Cefepime 2 GM in Sodium Chloride 0.9% 100 ML IVPB SCH (14:26)
[2022-06-22] MEDS: Azithromycin 250 MG TAB PO SCH (20:19)
[2022-06-23] MEDS: Cefepime 2 GM in Sodium Chloride 0.9% 100 ML IVPB SCH (03:13)
[2022-06-23] MEDS: Levothyroxine 150 MCG TAB PO SCH (06:39)
[2022-06-23] MEDS: NIRMATRELVIR 150 MG/RITONAVIR 100 MG PO SCH ×2 (08:29→20:34)
[2022-06-23] MEDS: Calcium Carbonate 600 MG + Vit D TAB PO SCH (08:32)
[2022-06-23] MEDS: Liothyronine Sodium 5 MCG TAB PO SCH (08:32)
[2022-06-23] MEDS: Senokot S 8.6-50 MG TAB PO SCH ×2 (08:32→20:32)
[2022-06-23] MEDS: FLUoxetine HCl 20 MG CAP PO SCH (08:32)
[2022-06-23] MEDS: Polyethylene Glycol 3350 17 GM Packet PO SCH (08:32)
[2022-06-23] MEDS: hydrALAZINE 25 MG TAB PO SCH ×3 (08:33→20:32)
[2022-06-23] MEDS: Metoprolol Tartrate 25 MG TAB PO SCH ×2 (08:33→20:32)
[2022-06-23] MEDS: Apixaban 2.5 MG TAB PO SCH ×2 (08:33→20:32)
[2022-06-23] MEDS: Lisinopril 10 MG TAB PO SCH (08:33)
[2022-06-23] MEDS: Furosemide 40 MG TAB PO SCH (08:33)
[2022-06-23] MEDS: Fluconazole 100 MG TAB PO SCH (08:34)
[2022-06-23] MEDS: Acetaminophen 325 MG TAB PO PRN ×2 (09:20→20:33)
[2022-06-23] MEDS: Cyclobenzaprine 10 MG TAB PO PRN ×2 (09:23→20:33)
[2022-06-23] MEDS: BENGAY TOP SCH ×3 (13:31→20:40)
[2022-06-23] MEDS ORDERED: cloNIDine 0.1 MG TAB PO SCH (19:30)
[2022-06-23] MEDS ORDERED: cloNIDine 0.1 MG TAB PO PRN (19:32)
[2022-06-23] MEDS: Azithromycin 250 MG TAB PO SCH (20:32)
[2022-06-23] MEDS: Albuterol 200 PUFF (6.7GM INHALER) INH PRN (20:43)
[2022-06-24] MEDS: Acetaminophen 325 MG TAB PO PRN ×2 (00:36→08:34)
[2022-06-24] MEDS: Cyclobenzaprine 10 MG TAB PO PRN ×3 (02:28→20:26)
[2022-06-24 06:06] LABS: #Eosinphils 0.3 thou/uL (0.0-0.7); #Lymphocytes 1.3 thou/uL (1.20-3.40); #Monocytes 0.7 thou/uL (0.11-0.59); #Neutrophils 6.4 thou/uL (1.40-6.50); %Basophils 0.4 % (0.0-1.0); %Eosinophils 3.8 % (0.0-10.0); %Lymphocytes 14.9 % (21.0-51.0); %Monocytes 8.3 % (0.0-10.0); %Neutrophils 72.7 % (42.0-75.0); Hemoglobin 7.6 g/dL (12.0-16.0); Mean Corpuscular Hemoglobin 24.2 pg (27.0-31.0); Mean Corpuscular Volume 80.6 fL (78.0-98.0); Mean Platelet Volume 7.7 fL (7.4-10.4); Platelet Count 370 thou/uL (130-400); RBC Distribution Width 16.6 % (11.5-14.5); Red Blood Cell (RBC) Count 3.13 mill/uL (4.20-5.40); White Blood Cell (WBC) Count 8.9 thou/uL (4.8-10.8)
[2022-06-24] MEDS: Levothyroxine 150 MCG TAB PO SCH (06:07)
[2022-06-24 06:09] LABS: Anion Gap 18 mmol/L (10-20); BUN (Urea Nitrogen) 15 mg/dL (9.8-20.1); Calc. Creatinine Clearance 134 mL/min (70-130); Calcium 8.5 mg/dL (7.8-10.44); Carbon Dioxide 28 mmol/L (23-31); Chloride 95 mmol/L (98-107); Estimated GFR 79; Glucose 90 mg/dL (83-110); Potassium 3.9 mmol/L (3.5-5.1); Sodium 137 mmol/L (136-145)
[2022-06-24] MEDS: Fluconazole 100 MG TAB PO SCH (08:34)
[2022-06-24] MEDS: FLUoxetine HCl 20 MG CAP PO SCH (08:34)
[2022-06-24] MEDS: Calcium Carbonate 600 MG + Vit D TAB PO SCH (08:36)
[2022-06-24] MEDS: Polyethylene Glycol 3350 17 GM Packet PO SCH (08:36)
[2022-06-24] MEDS: Senokot S 8.6-50 MG TAB PO SCH ×2 (08:39→21:55)
[2022-06-24] MEDS: Furosemide 40 MG TAB PO SCH (08:39)
[2022-06-24] MEDS: Liothyronine Sodium 5 MCG TAB PO SCH (08:43)
[2022-06-24] MEDS: Apixaban 2.5 MG TAB PO SCH ×2 (08:43→20:21)
[2022-06-24] MEDS: Metoprolol Tartrate 25 MG TAB PO SCH ×2 (08:43→20:21)
[2022-06-24] MEDS: hydrALAZINE 25 MG TAB PO SCH ×3 (08:43→20:22)
[2022-06-24] MEDS: NIRMATRELVIR 150 MG/RITONAVIR 100 MG PO SCH ×2 (08:43→20:23)
[2022-06-24] MEDS: Lisinopril 10 MG TAB PO SCH (08:43)
[2022-06-24] MEDS: BENGAY TOP SCH ×3 (08:44→21:07)
[2022-06-24] MEDS: traMADol HCl 50 MG TAB PO PRN (12:47)
[2022-06-24] MEDS ORDERED: guaiFENesin ER 600 MG TAB PO PRN (17:51)
[2022-06-25] MEDS: traMADol HCl 50 MG TAB PO PRN (00:45)
[2022-06-25] MEDS: Levothyroxine 150 MCG TAB PO SCH (05:19)
[2022-06-25] MEDS: Calcium Carbonate 600 MG + Vit D TAB PO SCH (08:05)
[2022-06-25] MEDS: Fluconazole 100 MG TAB PO SCH (08:05)
[2022-06-25] MEDS ORDERED: hydrALAZINE 20 MG/ML VIAL SLOW IVP PRN (08:05)
[2022-06-25] MEDS: Metoprolol Tartrate 25 MG TAB PO SCH ×2 (08:05→21:52)
[2022-06-25] MEDS: Liothyronine Sodium 5 MCG TAB PO SCH (08:06)
[2022-06-25] MEDS: FLUoxetine HCl 20 MG CAP PO SCH (08:06)
[2022-06-25] MEDS: NIRMATRELVIR 150 MG/RITONAVIR 100 MG PO SCH ×2 (08:06→22:28)
[2022-06-25] MEDS: Furosemide 40 MG TAB PO SCH (08:06)
[2022-06-25] MEDS: hydrALAZINE 25 MG TAB PO SCH ×3 (08:06→21:52)
[2022-06-25] MEDS: Apixaban 2.5 MG TAB PO SCH ×2 (08:06→21:52)
[2022-06-25] MEDS: Senokot S 8.6-50 MG TAB PO SCH ×2 (09:00→21:51)
[2022-06-25] MEDS: Polyethylene Glycol 3350 17 GM Packet PO SCH (09:00)
[2022-06-25] MEDS ORDERED: Lisinopril 20 MG TAB PO SCH (09:00)
[2022-06-25] MEDS: BENGAY TOP SCH ×3 (11:58→21:53)
[2022-06-25] MEDS: HumaLOG 300 UNITS/3 ML VIAL SC PRN (12:00)
[2022-06-26] MEDS: Cyclobenzaprine 10 MG TAB PO PRN (02:48)
[2022-06-26 05:41] LABS: #Eosinphils 0.4 thou/uL (0.0-0.7); #Lymphocytes 1.5 thou/uL (1.20-3.40); #Monocytes 0.8 thou/uL (0.11-0.59); #Neutrophils 7.4 thou/uL (1.40-6.50); %Basophils 0.3 % (0.0-1.0); %Monocytes 7.5 % (0.0-10.0); %Neutrophils 73.1 % (42.0-75.0); Hemoglobin 7.6 g/dL (12.0-16.0); Mean Corpuscular Hemoglobin 24.7 pg (27.0-31.0); Mean Corpuscular Volume 79.9 fL (78.0-98.0); Mean Platelet Volume 7.2 fL (7.4-10.4); Platelet Count 406 thou/uL (130-400); RBC Distribution Width 17.1 % (11.5-14.5); Red Blood Cell (RBC) Count 3.05 mill/uL (4.20-5.40); White Blood Cell (WBC) Count 10.1 thou/uL (4.8-10.8)
[2022-06-26 05:50] LABS: Anion Gap 19 mmol/L (10-20); BUN (Urea Nitrogen) 15 mg/dL (9.8-20.1); Calc. Creatinine Clearance 135 mL/min (70-130); Carbon Dioxide 30 mmol/L (23-31); Chloride 92 mmol/L (98-107); Estimated GFR 81; Glucose 115 mg/dL (83-110); Potassium 3.8 mmol/L (3.5-5.1); Sodium 137 mmol/L (136-145)
[2022-06-26] MEDS: Levothyroxine 150 MCG TAB PO SCH (06:17)
[2022-06-26] MEDS: Calcium Carbonate 600 MG + Vit D TAB PO SCH (08:44)
[2022-06-26] MEDS: Furosemide 40 MG TAB PO SCH (08:45)
[2022-06-26] MEDS: Senokot S 8.6-50 MG TAB PO SCH ×2 (08:45→21:30)
[2022-06-26] MEDS: FLUoxetine HCl 20 MG CAP PO SCH (08:45)
[2022-06-26] MEDS: Liothyronine Sodium 5 MCG TAB PO SCH (08:45)
[2022-06-26] MEDS: Fluconazole 100 MG TAB PO SCH (08:45)
[2022-06-26] MEDS: Apixaban 2.5 MG TAB PO SCH ×2 (08:45→21:28)
[2022-06-26] MEDS: Metoprolol Tartrate 25 MG TAB PO SCH ×2 (08:45→21:28)
[2022-06-26] MEDS: hydrALAZINE 25 MG TAB PO SCH ×3 (08:45→21:29)
[2022-06-26] MEDS: BENGAY TOP SCH ×3 (08:47→21:30)
[2022-06-26] MEDS: Polyethylene Glycol 3350 17 GM Packet PO SCH (08:47)
[2022-06-26] MEDS: Lisinopril 20 MG TAB PO SCH (11:25)
[2022-06-26] MEDS: traMADol HCl 50 MG TAB PO PRN (21:29)
[2022-06-27] MEDS: Levothyroxine 150 MCG TAB PO SCH (05:25)
[2022-06-27] MEDS: Liothyronine Sodium 5 MCG TAB PO SCH (09:17)
[2022-06-27] MEDS: Fluconazole 100 MG TAB PO SCH (09:17)
[2022-06-27] MEDS: Calcium Carbonate 600 MG + Vit D TAB PO SCH (09:17)
[2022-06-27] MEDS: Lisinopril 20 MG TAB PO SCH (09:17)
[2022-06-27] MEDS: Apixaban 2.5 MG TAB PO SCH ×2 (09:18→20:50)
[2022-06-27] MEDS: Furosemide 40 MG TAB PO SCH (09:18)
[2022-06-27] MEDS: Metoprolol Tartrate 25 MG TAB PO SCH ×2 (09:18→20:50)
[2022-06-27] MEDS: FLUoxetine HCl 20 MG CAP PO SCH (09:18)
[2022-06-27] MEDS: hydrALAZINE 25 MG TAB PO SCH ×3 (09:18→20:50)
[2022-06-27] MEDS: Senokot S 8.6-50 MG TAB PO SCH ×2 (09:19→20:50)
[2022-06-27] MEDS: BENGAY TOP SCH ×3 (09:19→21:38)
[2022-06-27] MEDS: Polyethylene Glycol 3350 17 GM Packet PO SCH (12:29)
[2022-06-27 16:09] VITALS: BMI 47.9
[2022-06-27] MEDS: cloNIDine 0.1 MG TAB PO PRN (21:39)
[2022-06-28] MEDS: Levothyroxine 150 MCG TAB PO SCH (05:47)
[2022-06-28] MEDS: cloNIDine 0.1 MG TAB PO PRN (05:47)
[2022-06-28 06:10] LABS: #Eosinphils 0.4 thou/uL (0.0-0.7); #Lymphocytes 1.7 thou/uL (1.20-3.40); #Neutrophils 6.9 thou/uL (1.40-6.50); %Basophils 0.5 % (0.0-1.0); %Eosinophils 3.6 % (0.0-10.0); %Lymphocytes 17.3 % (21.0-51.0); %Monocytes 9.9 % (0.0-10.0); %Neutrophils 68.8 % (42.0-75.0); Hemoglobin 7.7 g/dL (12.0-16.0); Mean Corpuscular Hemoglobin 24.1 pg (27.0-31.0); Mean Corpuscular Volume 80.3 fL (78.0-98.0); Mean Platelet Volume 7.1 fL (7.4-10.4); Platelet Count 473 thou/uL (130-400); RBC Distribution Width 16.8 % (11.5-14.5)
[2022-06-28 06:24] LABS: Anion Gap 17 mmol/L (10-20); BUN (Urea Nitrogen) 17 mg/dL (9.8-20.1); Calc. Creatinine Clearance 126 mL/min (70-130); Calcium 9.4 mg/dL (7.8-10.44); Carbon Dioxide 33 mmol/L (23-31); Chloride 92 mmol/L (98-107); Estimated GFR 74; Glucose 122 mg/dL (83-110); Potassium 3.8 mmol/L (3.5-5.1); Sodium 138 mmol/L (136-145)
[2022-06-28] MEDS: traMADol HCl 50 MG TAB PO PRN ×2 (08:09→14:29)
[2022-06-28] MEDS: Lisinopril 20 MG TAB PO SCH (08:11)
[2022-06-28] MEDS: Furosemide 40 MG TAB PO SCH (08:11)
[2022-06-28] MEDS: Senokot S 8.6-50 MG TAB PO SCH ×2 (08:12→21:07)
[2022-06-28] MEDS: Metoprolol Tartrate 25 MG TAB PO SCH ×2 (08:12→21:07)
[2022-06-28] MEDS: Liothyronine Sodium 5 MCG TAB PO SCH (08:12)
[2022-06-28] MEDS: Apixaban 2.5 MG TAB PO SCH ×2 (08:12→21:07)
[2022-06-28] MEDS: Calcium Carbonate 600 MG + Vit D TAB PO SCH (08:12)
[2022-06-28] MEDS: FLUoxetine HCl 20 MG CAP PO SCH (08:12)
[2022-06-28] MEDS: Polyethylene Glycol 3350 17 GM Packet PO SCH (08:13)
[2022-06-28] MEDS: Fluconazole 100 MG TAB PO SCH (08:13)
[2022-06-28] MEDS: hydrALAZINE 25 MG TAB PO SCH ×3 (08:13→21:07)
[2022-06-28] MEDS: BENGAY TOP SCH ×3 (08:13→21:07)
[2022-06-28] MEDS: HumaLOG 300 UNITS/3 ML VIAL SC PRN ×2 (12:38→17:52)
[2022-06-29] MEDS: Levothyroxine 150 MCG TAB PO SCH (05:18)
[2022-06-29] MEDS: Fluconazole 100 MG TAB PO SCH (08:02)
[2022-06-29] MEDS: Calcium Carbonate 600 MG + Vit D TAB PO SCH (08:03)
[2022-06-29] MEDS: Lisinopril 20 MG TAB PO SCH (08:03)
[2022-06-29] MEDS: hydrALAZINE 25 MG TAB PO SCH ×3 (08:04→21:18)
[2022-06-29] MEDS: Furosemide 40 MG TAB PO SCH (08:04)
[2022-06-29] MEDS: FLUoxetine HCl 20 MG CAP PO SCH (08:04)
[2022-06-29] MEDS: Liothyronine Sodium 5 MCG TAB PO SCH (08:04)
[2022-06-29] MEDS: Apixaban 2.5 MG TAB PO SCH ×2 (08:04→21:18)
[2022-06-29] MEDS: Senokot S 8.6-50 MG TAB PO SCH ×2 (08:04→21:18)
[2022-06-29] MEDS: Metoprolol Tartrate 25 MG TAB PO SCH ×2 (08:04→21:19)
[2022-06-29] MEDS: BENGAY TOP SCH ×3 (08:05→21:19)
[2022-06-29] MEDS: Polyethylene Glycol 3350 17 GM Packet PO SCH (08:05)
[2022-06-29] MEDS: traMADol HCl 50 MG TAB PO PRN (09:46)
[2022-06-29] MEDS: HumaLOG 300 UNITS/3 ML VIAL SC PRN (12:05)
[2022-06-30] MEDS: Levothyroxine 150 MCG TAB PO SCH (05:47)
[2022-06-30 06:25] LABS: Anion Gap 18 mmol/L (10-20); BUN (Urea Nitrogen) 19 mg/dL (9.8-20.1); Calc. Creatinine Clearance 123 mL/min (70-130); Calcium 8.8 mg/dL (7.8-10.44); Carbon Dioxide 32 mmol/L (23-31); Chloride 91 mmol/L (98-107); Estimated GFR 72; Glucose 140 mg/dL (83-110); Potassium 3.8 mmol/L (3.5-5.1); Sodium 137 mmol/L (136-145)
[2022-06-30 06:43] LABS: #Basophils 0.1 thou/uL (0.0-0.2); #Eosinphils 0.3 thou/uL (0.0-0.7); #Lymphocytes 1.7 thou/uL (1.20-3.40); #Monocytes 1.1 thou/uL (0.11-0.59); #Neutrophils 7.8 thou/uL (1.40-6.50); %Basophils 0.8 % (0.0-1.0); %Eosinophils 2.8 % (0.0-10.0); %Lymphocytes 15.3 % (21.0-51.0); %Monocytes 10.1 % (0.0-10.0); %Neutrophils 71.1 % (42.0-75.0); Hemoglobin 7.4 g/dL (12.0-16.0); Mean Corpuscular HGB CONC 29.3 g/dL (32.0-36.0); Mean Corpuscular Hemoglobin 23.5 pg (27.0-31.0); Mean Platelet Volume 7.2 fL (7.4-10.4); Platelet Count 483 thou/uL (130-400); RBC Distribution Width 16.2 % (11.5-14.5); Red Blood Cell (RBC) Count 3.15 mill/uL (4.20-5.40)
[2022-06-30] MEDS: Senokot S 8.6-50 MG TAB PO SCH (07:56)
[2022-06-30] MEDS: Liothyronine Sodium 5 MCG TAB PO SCH (07:56)
[2022-06-30] MEDS: FLUoxetine HCl 20 MG CAP PO SCH (07:57)
[2022-06-30] MEDS: Calcium Carbonate 600 MG + Vit D TAB PO SCH (07:57)
[2022-06-30] MEDS: Lisinopril 20 MG TAB PO SCH (07:57)
[2022-06-30] MEDS: hydrALAZINE 25 MG TAB PO SCH (07:57)
[2022-06-30] MEDS: Furosemide 40 MG TAB PO SCH (07:57)
[2022-06-30] MEDS: BENGAY TOP SCH (07:58)
[2022-06-30] MEDS: Fluconazole 100 MG TAB PO SCH (07:58)
[2022-06-30] MEDS: Metoprolol Tartrate 25 MG TAB PO SCH (07:58)
[2022-06-30] MEDS: Apixaban 2.5 MG TAB PO SCH (07:58)
[2022-06-30] MEDS: Polyethylene Glycol 3350 17 GM Packet PO SCH (07:58)
[2022-06-30 14:31] VITALS: BP 151/82; TEMP 97.9
== END 2022-06-30 14:20 | disposition home or self-care (01) | DRG 689 ==
LOC: NAV ACUTE 18:23
PROVIDERS: ADMIT Family Medicine; ATTEND Family Medicine
PROC: 3E033XZ Introduction of Vasopressor into Peripheral Vein, Percutaneous Approach (ICD-10-PCS; 2022-06-09)
PROC: 30233N1 Transfusion of Nonautologous Red Blood Cells into Peripheral Vein, Percutaneous Approach (ICD-10-PCS; 2022-06-09)
PROC: 8E0ZXY6 Isolation (ICD-10-PCS; principal; 2022-06-20)
DX: N39.0 Urinary tract infection, site not specified (principal); U07.1 COVID-19; I13.0 Hypertensive heart and chronic kidney disease with heart failure and stage 1 through stage 4 chronic kidney disease, or unspecified chronic kidney disease; Z68.42 Body mass index [BMI] 45.0-49.9, adult; J96.10 Chronic respiratory failure, unspecified whether with hypoxia or hypercapnia; R53.1 Weakness; D46.9 Myelodysplastic syndrome, unspecified; E78.5 Hyperlipidemia, unspecified; E66.01 Morbid (severe) obesity due to excess calories; D63.8 Anemia in other chronic diseases classified elsewhere; F32.A Depression, unspecified; E89.0 Postprocedural hypothyroidism; D63.1 Anemia in chronic kidney disease; E11.22 Type 2 diabetes mellitus with diabetic chronic kidney disease; E11.65 Type 2 diabetes mellitus with hyperglycemia; N18.31 Chronic kidney disease, stage 3a; R41.0 Disorientation, unspecified; B96.5 Pseudomonas (aeruginosa) (mallei) (pseudomallei) as the cause of diseases classified elsewhere; Z88.8 Allergy status to other drugs, medicaments and biological substances; Z79.01 Long term (current) use of anticoagulants; Z86.718 Personal history of other venous thrombosis and embolism; Z79.899 Other long term (current) drug therapy; Z90.710 Acquired absence of both cervix and uterus; Z98.890 Other specified postprocedural states
CPT/HCPCS: 36415; 36416; 36430; 70470; 71045; 80048; 80053; 81001; 82140; 83605; 83880; 85014; 85018; 85025; 86850; 86900; 86901; 87077; 87086; 87186; 87811; 94640; J0360; J0692; J1815; J3490; J7120; J7620; P9016; Q9967; U0002; U0003; U0005

== ENCOUNTER 2022-07-01 10:19 | Emergency (ER) | payer MEDICARE, OTHER ==
[~2022-07-01 10:19] MED LIST changes: +Iopamidol 370 76% 100 ML VIAL ONE; -Iron, Sodium Ferric Gluconate 125 MG in Sodium Chloride 0.9% 100 ML IVPB SCH; -Sodium Chloride 0.9% 100 ML ONE
[2022-07-01 11:03] LABS: #Basophils 0.1 thou/uL (0.0-0.2); #Eosinphils 0.1 thou/uL (0.0-0.7); #Lymphocytes 1.1 thou/uL (1.20-3.40); #Monocytes 1.3 thou/uL (0.11-0.59); #Neutrophils 11.8 thou/uL (1.40-6.50); %Basophils 0.4 % (0.0-1.0); %Eosinophils 0.7 % (0.0-10.0); %Lymphocytes 7.7 % (21.0-51.0); %Monocytes 9.2 % (0.0-10.0); Hemoglobin 7.7 g/dL (12.0-16.0); Mean Corpuscular Hemoglobin 23.8 pg (27.0-31.0); Mean Corpuscular Volume 79.2 fL (78.0-98.0); Mean Platelet Volume 7.3 fL (7.4-10.4); Platelet Count 532 thou/uL (130-400); RBC Distribution Width 16.5 % (11.5-14.5); Red Blood Cell (RBC) Count 3.24 mill/uL (4.20-5.40); White Blood Cell (WBC) Count 14.4 thou/uL (4.8-10.8)
[2022-07-01 11:08] LABS: ALT (SGPT) 21 U/L (8-55); AST (SGOT) 22 U/L (5-34); Albumin 2.6 g/dL (3.4-4.8); Alkaline Phosphatase 169 U/L (40-110); Anion Gap 22 mmol/L (10-20); BUN (Urea Nitrogen) 21 mg/dL (9.8-20.1); Bilirubin, Total 0.8 mg/dL (0.2-1.2); Calc. Creatinine Clearance 0 mL/min (70-130); Calcium 8.4 mg/dL (7.8-10.44); Carbon Dioxide 29 mmol/L (23-31); Chloride 90 mmol/L (98-107); Estimated GFR 50; Glucose 192 mg/dL (83-110); Potassium 3.8 mmol/L (3.5-5.1); Protein, Total 6.6 g/dL (5.8-8.1); Sodium 137 mmol/L (136-145)
[2022-07-01] MEDS ORDERED: Sodium Chloride 0.9% 1,000 ML ONE (11:48)
[2022-07-01] MEDS ORDERED: Sodium Chloride 0.9% 2,000 ML ONE (11:48)
[2022-07-01] MEDS ORDERED: cefTRIAXone\\ROCEPHIN 2 GM VIAL ONE (12:41)
[2022-07-01 12:47] LABS: Bilirubin Moderate (Negative); Blood, Urine Trace (Negative); Clarity Clear (Clear); Glucose, Urine (Dipstick) Negative (Negative); Ketone, Urine 15 mg/dL (Negative); Leukocyte Negative (Negative); Nitrite Negative (Negative); Protein, Urine (Dipstick) 100 mg/dL (Neg-Trace); Urobilinogen 0.2 mg/dL (Less than 2); pH, Urine 5.5 (5.0-9.0)
[2022-07-01 12:55] LABS: Bacteria/HPF 2+ HPF (None Seen); Mucous/LPF Few LPF (<2+); Squamous Epithelial 0-3 HPF (0-3); WBC/HPF 0-3 HPF (0-3)
[2022-07-01] MEDS ORDERED: Sodium Chloride 0.9% 250 ML 250 ML ONE (12:56)
== END 2022-07-01 14:50 | disposition home or self-care (01) ==
LOC: NAV ERS 10:19
DX: N39.0 Urinary tract infection, site not specified (principal); D72.829 Elevated white blood cell count, unspecified; E11.9 Type 2 diabetes mellitus without complications; E03.9 Hypothyroidism, unspecified; E78.5 Hyperlipidemia, unspecified; I10 Essential (primary) hypertension; W19.XXXA Unspecified fall, initial encounter
CPT/HCPCS: 51701; 71045; 74177; 80053; 81003; 81015; 83605; 85025; 87040; 87086; 96361; 96365; 96375; J0696; J3370; J7050

== ENCOUNTER 2022-08-18 11:57 | Emergency (ER) | payer MEDICARE, OTHER ==
[2022-08-18 13:06] LABS: ALT (SGPT) 22 U/L (8-55); AST (SGOT) 24 U/L (5-34); Albumin 2.5 g/dL (3.4-4.8); Alkaline Phosphatase 264 U/L (40-110); Anion Gap 15 mmol/L (10-20); BUN (Urea Nitrogen) 22 mg/dL (9.8-20.1); Bilirubin, Total 0.7 mg/dL (0.2-1.2); Calc. Creatinine Clearance 0 mL/min (70-130); Carbon Dioxide 30 mmol/L (23-31); Chloride 91 mmol/L (98-107); Estimated GFR 78; Globulin 4.1 g/dL (2.4-3.5); Glucose 214 mg/dL (83-110); Potassium 4.5 mmol/L (3.5-5.1); Protein, Total 6.6 g/dL (5.8-8.1); Sodium 131 mmol/L (136-145)
[2022-08-18 13:07] LABS: #Eosinphils 0.2 thou/uL (0.0-0.7); #Lymphocytes 2.2 thou/uL (1.20-3.40); #Monocytes 0.9 thou/uL (0.11-0.59); #Neutrophils 14.2 thou/uL (1.40-6.50); %Basophils 0.3 % (0.0-1.0); %Eosinophils 1.2 % (0.0-10.0); %Lymphocytes 12.5 % (21.0-51.0); %Monocytes 4.9 % (0.0-10.0); %Neutrophils 81.1 % (42.0-75.0); Hemoglobin 7.1 g/dL (12.0-16.0); Mean Corpuscular HGB CONC 30.3 g/dL (32.0-36.0); Mean Corpuscular Hemoglobin 24.5 pg (27.0-31.0); Mean Corpuscular Volume 80.8 fl (78.0-98.0); Mean Platelet Volume 6.8 fL (7.4-10.4); Platelet Count 673 10x3/uL (130-400); RBC Distribution Width 17.5 % (11.5-14.5); White Blood Cell (WBC) Count 17.5 10x3/uL (4.8-10.8)
[2022-08-18] MEDS ORDERED: Sodium Chloride 0.9% 500 ML ONE (13:21)
[2022-08-18] MEDS ORDERED: Acetaminophen 500 MG TAB ONE (14:46)
== END 2022-08-18 18:48 ==
LOC: NAV ERS 11:57
DX: D64.9 Anemia, unspecified (principal); E11.9 Type 2 diabetes mellitus without complications; E03.9 Hypothyroidism, unspecified; E78.5 Hyperlipidemia, unspecified; I10 Essential (primary) hypertension; Z86.718 Personal history of other venous thrombosis and embolism; Z79.899 Other long term (current) drug therapy
CPT/HCPCS: 36430; 80053; 83880; 84484; 85025; 86850; 86900; 86901; 93005; J7030; P9016